=== PATIENT | female | born 1990 | race American Indian/Alaskan Native ===

== ENCOUNTER 2020-02-28 23:01 | Emergency (ER) | payer OTHER ==
--- NOTE | 2020-02-28 23:36 | XRay Report ---
Left knee 3 views INDICATION: Left knee pain. IMPRESSION: Small knee effusion. Mild tricompartmental degenerative changes. No fracture. Signer Name: Roger Vargas MD Signed: 02/28/2020 11:32 PM Workstation Name: [id number]
[2020-02-28 23:53] VITALS: BP 126/78
--- NOTE | 2020-02-29 00:23 | Emergency Department Report ---
ED General Adult HPI - General Chief complaint: Extremity Injury, Lower Stated complaint: LEFT KNEE PAIN Time Seen by Provider: 02/29/20 00:12 Source: patient Mode of arrival: Ambulatory Limitations: No Limitations - History of Present Illness Initial comments: 30-year-old female presented with chief complaint of left knee pain, sudden onset prior to arrival. She states that about 4:00 this afternoon she was doing some stretching and hyperflexed her knee and initially had a little bit of pain but was able to walk and over the past few hours her knee has become swollen and now she is not able to bear weight. Denies any numbness or tingling. Pain worse with movement better with rest. Pain mild. - Related Data Previous Rx's Medication Instructions Recorded Last Taken Type Naproxen [Naprosyn TAB] 500 mg PO BID #20 tablet 02/29/20 Unknown Rx Allergies Allergy/AdvReac Type Severity Reaction Status Date / Time No Known Allergies Allergy Unverified 02/28/20 23:06 ED Review of Systems ROS: Stated complaint: LEFT KNEE PAIN Other details as noted in HPI Comment: All other systems reviewed and negative Musculoskeletal: as per HPI ED Past Medical Hx - Past Medical History Previous Medical History?: No - Surgical History Past Surgical History?: No - Social History Smoking Status: Never Smoker Substance Use Type: None - Medications Home Medications: Home Medications Medication Instructions Recorded Confirmed Last Taken Type Naproxen [Naprosyn TAB] 500 mg PO BID #20 tablet 02/29/20 Unknown Rx ED Physical Exam - General Limitations: No Limitations General appearance: alert, in no apparent distress - Head Head exam: Present: atraumatic, normocephalic - Eye Eye exam: Present: normal appearance, PERRL - Neck Neck exam: Present: normal inspection, full ROM - Extremities Exam Extremities exam: Present: other (There is swelling and tenderness to the left knee joint with painful range of motion. Suspected knee joint effusion. Remainder of extremity is normal. Pulses are normal.) - Neurological Exam Neurological exam: Present: alert, oriented X3 - Psychiatric Psychiatric exam: Present: normal affect, normal mood - Skin Skin exam: Present: warm, dry, intact ED Course Vital Signs 02/28/20 23:06 Temperature 98.2 F Pulse Rate 86 Respiratory 20 Rate Blood Pressure 126/78 O2 Sat by Pulse 98 Oximetry ED Medical Decision Making - Radiology Data Radiology results: report reviewed Small knee joint effusion - Medical Decision Making Patient presented with knee pain after hyperflexion injury earlier today. On my exam there is tenderness and swelling noted to the left knee, intact distal pulses. Consistent with sprain, x-ray negative. We will place a knee immobilizer and give crutches and referred to orthopedics for follow-up. - Differential Diagnosis Knee sprain, meniscus tear, fracture Critical care attestation.: If time is entered above; I have spent that time in minutes in the direct care of this critically ill patient, excluding procedure time. ED Disposition Clinical Impression: Knee sprain Qualifiers: Encounter type: initial encounter Involved ligament of knee: unspecified ligament Laterality: left Qualified Code(s): S83.92XA - Sprain of unspecified site of left knee, initial encounter Disposition: TO HOME OR SELFCARE Is pt being admited?: No Condition: Good Instructions: Knee Sprain, Adult Prescriptions: Naproxen [Naprosyn TAB] 500 mg PO BID #20 tablet Referrals: LISANDRO SHIRLEY MD [Staff Physician] - 3-5 Days Time of Disposition: 00:24
== END 2020-02-29 01:25 | disposition home or self-care (01) ==
LOC: EDBD → ED 23:01
DX: S83.92XA Sprain of unspecified site of left knee, initial encounter (principal); Z79.899 Other long term (current) drug therapy; X58.XXXA Exposure to other specified factors, initial encounter; Y93.89 Activity, other specified; Y92.89 Other specified places as the place of occurrence of the external cause; Y99.8 Other external cause status